=== PATIENT | female | born 1985 | race African-American/Black ===

== ENCOUNTER 2017-04-09 16:09 | Emergency (ER) | payer BC, OTHER ==
[~2017-04-09] VITALS: Ht 165.1 cm; Wt 108.9 kg
[2017-04-09 16:42] LABS: URINE BILIRUBIN NEGATIVE (Negative); URINE BLOOD NEGATIVE (Negative); URINE COLOR YELLOW; URINE GLUCOSE-RANDOM* 3+ (Negative); URINE KETONES NEGATIVE (Negative); URINE LEUKOCYTES-REFLEX NEGATIVE (Negative); URINE PROTEIN (DIPSTICK) NEGATIVE (Negative); URINE UROBILINOGEN 0.2 E.U./dl (0.2-1.0)
[2017-04-09 16:48] LABS: ABSOLUTE NEUTROPHILS 4.8 thou/uL (1.4-8.2); BASOPHILS 0.5 % (0.0-2.0); EOSINOPHILS 0.8 % (0.0-3.0); HEMATOCRIT 33.1 % (37.0-47.0); HEMOGLOBIN 11.1 gm/dL (12.0-15.0); LYMPHOCYTES 22.4 % (24.0-44.0); MCH 29.2 pg (26.0-34.0); MCHC 33.4 g/dL (28.0-37.0); MCV 87.3 fL (80.0-100.0); MONOCYTES 7.3 % (1.0-8.0); PLATELET COUNT 238 thou/uL (150-400); RBC 3.79 mil/uL (4.20-5.00); RDW 13.1 % (10.5-14.5)
[2017-04-09 16:53] LABS: MANUAL DIFF NO
[2017-04-09 17:01] LABS: CALCIUM 9.3 mg/dL (8.5-10.1); CREATININE 0.9 mg/dL (0.6-1.0); POTASSIUM 3.8 mmol/L (3.5-5.1)
[2017-04-09 17:07] LABS: ALBUMIN 3.2 g/dL (3.4-5.0); TOTAL BILIRUBIN 0.2 mg/dL (<0.1-1.0); TOTAL PROTEIN 7.7 g/dL (6.4-8.2)
[2017-04-09] MEDS ORDERED: FLAGYL500 MG PO ×3 (17:56→17:58)
== END 2017-04-09 18:02 | disposition home or self-care (01) ==
LOC: ER 16:09
PROVIDERS: Physician Assistant
DX: O23.591 Infection of other part of genital tract in pregnancy, first trimester (principal); R10.30 Lower abdominal pain, unspecified; R11.0 Nausea; Z3A.12 12 weeks gestation of pregnancy; Z87.891 Personal history of nicotine dependence

== ENCOUNTER 2018-11-30 15:05 | Emergency (ER) | payer OTHER ==
[~2018-11-30] VITALS: Ht 165.1 cm; Wt 105.1 kg
[~2018-11-30 15:05] MED LIST: ASPIR 8181 M1 PO; FLAGYL500 MG PO; HUMALOG100 UNIT/1 SUBQ; LANTUS100 UNIT/M SUBQ; METFORMIN HCL500 MG PO; VITAFOL-OB+DHA1 EACH PO
[2018-11-30 15:12] VITALS: BP 138/91
[2018-11-30] MEDS ORDERED: MULTI FOR HER1 EAC1 PO (15:16)
== END 2018-11-30 16:19 | disposition home or self-care (01) ==
LOC: ER 15:05
DX: L98.8 Other specified disorders of the skin and subcutaneous tissue (principal); E11.9 Type 2 diabetes mellitus without complications; Z98.890 Other specified postprocedural states; Z87.891 Personal history of nicotine dependence

== ENCOUNTER 2019-01-31 21:01 | Emergency (ER) | payer OTHER ==
[~2019-01-31] VITALS: Ht 165.1 cm; Wt 104.3 kg
[~2019-01-31 21:01] MED LIST changes: +MULTI FOR HER1 EAC1 PO
[2019-01-31] MEDS ORDERED: BACTRIM DS TAB1 EACH PO (23:05)
[2019-01-31] MEDS ORDERED: KEFLEX500 M1 PO (23:05)
[2019-01-31 23:44] VITALS: BP 130/83
== END 2019-01-31 23:45 | disposition home or self-care (01) ==
LOC: ER 21:01
DX: L03.311 Cellulitis of abdominal wall (principal); E11.9 Type 2 diabetes mellitus without complications; Z79.4 Long term (current) use of insulin; Z87.891 Personal history of nicotine dependence

== ENCOUNTER 2020-07-29 18:36 | Emergency (ER) | payer BC ==
[~2020-07-29] VITALS: Ht 165.1 cm; Wt 93.9 kg
[~2020-07-29 18:36] MED LIST changes: +BACTRIM DS TAB1 EACH PO; +KEFLEX500 M1 PO
[2020-07-29] MEDS ORDERED: LISINOPRIL2.5 MG PO (18:48)
[2020-07-29] MEDS ORDERED: BACTRIM DS TAB1 EACH PO (20:01)
[2020-07-29] MEDS ORDERED: NORCO 5-325 TA1 EAC2 PO (20:01)
[2020-07-29 20:26] VITALS: BP 130/69
[2020-07-29] MEDS ORDERED: DIFLUCAN200 MG PO (20:26)
== END 2020-07-29 20:26 | disposition home or self-care (01) ==
LOC: ER 18:36
DX: L73.2 Hidradenitis suppurativa (principal); E11.9 Type 2 diabetes mellitus without complications; Z98.890 Other specified postprocedural states; Z79.4 Long term (current) use of insulin; Z79.899 Other long term (current) drug therapy; Z87.891 Personal history of nicotine dependence